=== PATIENT | male | born 1970 | race African-American/Black ===

== ENCOUNTER 2021-04-06 03:35 | Emergency (ER) | payer OTHER, SELFPAY ==
[2021-04-06 03:44] VITALS: BP 117/68; PULSE 88; RESP 18; TEMP 36.2; O2SAT 98
--- NOTE | 2021-04-06 03:58 | ED.GENADULT ---
HPI - General Adult General Chief complaint: Back Pain/Injury Stated complaint: need to talk to someone , etoh, back pain Time Seen by Provider: 04/06/21 03:58 History of Present Illness HPI narrative: Patient a 50-year-old gentleman who presents the emergency department with chief complaint of back pain and wants to talk to somebody. When talking to the patient he stated that he currently does not want to be seen in the emergency department and is called a cab. The patient denies suicidal or homicidal ideation denies any other complaints. Patient reports the back pain has been ongoing for several years. Related Data Home Medications Medication Instructions Recorded Confirmed Unable to Obtain Home Medications 04/06/21 04/06/21 Allergies Allergy/AdvReac Type Severity Reaction Status Date / Time No Known Allergies Allergy Verified 04/06/21 03:53 Review of Systems Review of Systems: Narrative: A 10 system review of systems was completed on the patient and is negative except for what is stated in the HPI. Nursing and ancillary documentation was reviewed. PMFSH Social History Social History Substance use type: unknown Exam Narrative: Exam Narrative: GENERAL: Well-appearing, well-nourished, and in no acute distress. HEAD: Normocephalic, atraumatic. EYES: PERRLA and EOMI. ENT: Nares clear, no rhinorrhea or epistaxis. Mucous membranes moist. NECK: Supple. CHEST: No respiratory distress. EXTREMITIES: Normal range of motion. No edema. SKIN: Warm, dry, no rash. NEURO: No focal deficits. Alert and oriented x3. PSYCH: Denies suicidal or homicidal ideation. Course Vital Signs Vital signs: Vital Signs Temperature 36.2 C L 04/06/21 03:44 Pulse Rate 88 04/06/21 03:44 Respiratory Rate 18 04/06/21 03:44 Blood Pressure 117/68 04/06/21 03:44 Pulse Oximetry 98 04/06/21 03:44 Temperature 36.2 C L 04/06/21 03:44 Pulse Rate 88 04/06/21 03:44 Respiratory Rate 18 04/06/21 03:44 Blood Pressure 117/68 04/06/21 03:44 Pulse Oximetry 98 04/06/21 03:44 Medical Decision Making Vital Signs Vital Signs: Vital Signs Temperature 36.2 C L 04/06/21 03:44 Pulse Rate 88 04/06/21 03:44 Respiratory Rate 18 04/06/21 03:44 Blood Pressure 117/68 04/06/21 03:44 Pulse Oximetry 98 04/06/21 03:44 Temperature 36.2 C L 04/06/21 03:44 Pulse Rate 88 04/06/21 03:44 Respiratory Rate 18 04/06/21 03:44 Blood Pressure 117/68 04/06/21 03:44 Pulse Oximetry 98 04/06/21 03:44 Discharge Plan Discharge Clinical Impression: Back pain Patient Disposition: Left Against Medical Advice Condition: Stable Prescriptions: No Action Unable to Obtain Home Medications RF: 0 Follow-up/Referrals: PHYSICIAN,ASSISTANT CENTER DIRECTOR [Primary Care Provider] - Time of Disposition: 04:01
--- NOTE | 2021-04-06 03:59 | PC.NURSE ---
ED MD in to assess pt. Reports pt now wants to sign out AMA. Charge nurse Diana in room to have pt sign AMA form as requested. During triage assessment, pt felt like he could hear staff talking about him through the call light/intercom system. project management manager notified at that time, and upon further investigation, discovered that pt had been recorded his arrival in the ED on his cell phone, and it was replaying loudly from pt's pocket.
== END 2021-04-06 04:01 | disposition left against medical advice (07) ==
LOC: ANHED 04:09
PROVIDERS: Emergency Provider Emergency Medicine
DX: M54.9 Dorsalgia, unspecified (principal)
CPT/HCPCS: 99281